=== PATIENT | female | born 1970 | race Two or more races ===

== ENCOUNTER 2017-09-18 19:14 | Emergency (ER) | payer MEDICAID, OTHER ==
[~2017-09-18] VITALS: Ht 154.9 cm; Wt 81.6 kg
--- NOTE | 2017-09-18 22:00 | NUR ---
TO BED 5 A 46 YO FEMALE PATIENT BIBSELF W C/O LOWER LIP PAIN/SWELLING SINCE WEDNESDAY PM. VSS. NAD NOTED. AMBULATORY. COMFORT MEASURES RENDERED.
--- NOTE | 2017-09-18 22:12 | NUR ---
Dr Hussein at bedside to evaluate patient.
[2017-09-18] MEDS ORDERED: SULFAMETH/TRIMETH 800/160 MG 1 UDTAB TABLET PO ONE ×2 (22:30→22:31)
[2017-09-18] MEDS ORDERED: CEPHALEXIN MONOHYDRATE 500 MG CAPSULE PO ONE ×2 (22:30→22:31)
--- NOTE | 2017-09-18 23:00 | NUR ---
Patient discharged to home in stable condition. Written and verbal after care instructions given. Patient verbalizes understanding of instruction. Patient is ambulatory with steady gait, no further complaints.
[2017-09-18 23:46] VITALS: BP 138/84
== END 2017-09-18 23:47 | disposition home or self-care (01) ==
LOC: ER 19:15
DX: K13.0 Diseases of lips (principal); B00.89 Other herpesviral infection; F17.200 Nicotine dependence, unspecified, uncomplicated; Z98.890 Other specified postprocedural states
CPT/HCPCS: 99283; A4606; Z7610